=== PATIENT | female | born 1990 | race Caucasian/White ===

== ENCOUNTER 2017-03-05 16:02 | Emergency (ER) | payer MEDICAID, OTHER ==
[~2017-03-05] VITALS: Ht 170.2 cm; Wt 77.8 kg
[2017-03-05 16:04] VITALS: BP 113/75
[2017-03-05] MEDS ORDERED: DEXAMETHASONE 4 MG TABLET PO STA (16:16)
[2017-03-05] MEDS ORDERED: DEXAMETHASONE 4 MG TABLET ONE (16:47)
== END 2017-03-05 16:52 | disposition home or self-care (01) ==
LOC: ED 16:41
DX: J03.00 Acute streptococcal tonsillitis, unspecified (principal); F17.210 Nicotine dependence, cigarettes, uncomplicated
CPT/HCPCS: 87081; 87880; 99284

== ENCOUNTER 2019-07-10 01:26 | Emergency (ER) | payer MEDICAID, OTHER ==
[~2019-07-10] VITALS: Ht 170.2 cm; Wt 69.9 kg
--- NOTE | 2019-07-10 01:42 | NUR ---
c/o cough x3 weeks, productive cough x1 week. placed vitals signs monitors, o2 sat 97% RA.
--- NOTE | 2019-07-10 02:09 | NUR ---
BREAK RN: RAD IN ROOM.
--- NOTE | 2019-07-10 02:26 | NUR ---
BREAK RN: PT RESTING ON [facility], ON PHONE. NADN. AWAITING RESULTS.
[2019-07-10 02:31] LABS: MEAN CORPUSCULAR HEMOGLOBIN 31.1 pg (27.0-34.8); MEAN CORPUSCULAR HGB CONC 33.8 g/dL (32.4-35.8); MEAN CORPUSCULAR VOLUME 91.8 fL (80-100); MEAN PLATELET VOLUME 7.2 fL (7.4-10.4); PLATELET COUNT 351 x10^3/uL (130-400); RED BLOOD COUNT 4.26 x10^6/uL (3.82-5.3); RED CELL DISTRIBUTION WIDTH 12.9 % (9.6-15.2)
[2019-07-10 02:40] VITALS: BP 128/82
[2019-07-10 02:41] LABS: ANION GAP 6 mmol/L (5-15); CALCIUM 8.7 mg/dL (8.5-10.1); CHLORIDE 108 mmol/L (98-107); CREATININE 0.81 mg/dL (0.55-1.02)
[2019-07-10 02:45] LABS: MD YES; TROPONIN I < 0.015 ng/mL (0.000-0.045)
[2019-07-10 02:48] LABS: <RBC MORPHOLOGY> NORMAL; LYMPH#(MANUAL) 1.97 x10^3/uL (1-3.4); LYMPHS% (MANUAL) 17 % (22-44); MONOS#(MANUAL) 0.93 x10^3/uL (0.3-2.7); MONOS% (MANUAL) 8 % (2-9); SEGS% (MANUAL) 75 % (42-75)
[2019-07-10 02:49] LABS: <PLATELET ESTIMATE> ADEQUATE; <PLT MORPHOLOGY> NORMAL PLT MORPH
--- NOTE | 2019-07-10 03:15 | NUR ---
Swab for COVID-19.
== END 2019-07-10 03:44 | disposition home or self-care (01) ==
LOC: ED 01:55
DX: R05 Cough (principal); Z20.828 Contact with and (suspected) exposure to other viral communicable diseases; F17.200 Nicotine dependence, unspecified, uncomplicated; R00.0 Tachycardia, unspecified
CPT/HCPCS: 36415; 71045; 80048; 82040; 84484; 85025; 93005; 99285